=== PATIENT | female | born 1945 | race Two or more races ===

== ENCOUNTER 2017-07-26 21:48 | Emergency (ER) | payer MEDICARE, BC ==
[2017-07-27] MEDS ORDERED: MORPHINE SULFATE IR 15 MG TABLET PO ONE (00:42)
[2017-07-27] MEDS ORDERED: ACETAMINOPHEN 325 MG TABLET PO ONE (00:42)
--- NOTE | 2017-07-27 00:43 | ER Document Report ---
ED General - General Chief Complaint: Fall Injury Stated Complaint: FALL Time Seen by Provider: 07/27/17 00:27 Notes: Patient is a 71-year-old female who presents after missing a step and falling down approximately 2 stairs. She states that she landed on her left knee and right shoulder and also struck the right side of her face. She does report that she lost consciousness. She is uncertain of the duration of loss of consciousness. She arrives complaining of a dull, constant throbbing pain to the right shoulder, left knee, and the back of her neck. Movement of any of the affected areas worsens the pain. She has not yet trialed anything to improve her pain. She denies a syncopal episode as the etiology of her fall today. She has not seen her primary doctor regarding today's concerns. She denies any prior injuries to the affected areas. Past Medical History - General Information source: Patient - Social History Smoking Status: Never Smoker Frequency of alcohol use: None Drug Abuse: None Lives with: Family Family History: Reviewed & Not Pertinent Review of Systems - Review of Systems Notes: Constitutional: Negative for fever. Eyes: Negative for visual changes. ENT: Negative for facial injury Cardiovascular: Negative for chest injury. Respiratory: Negative for shortness of breath. Gastrointestinal: Negative for abdominal injury. Genitourinary: Negative for genital injury Musculoskeletal: Positive for right shoulder and left knee injury Skin: Positive for laceration/abrasions. Neurological: Positive for head injury. Physical Exam - Vital signs Vitals: Temp Pulse Resp BP Pulse Ox 98.9 F 115 H 18 140/65 H 95 07/26/17 22:14 07/26/17 22:14 07/26/17 22:14 07/26/17 22:14 07/26/17 22:14 Interpretation: Tachycardic - Resolved at time of my assessment Notes: PHYSICAL EXAMINATION: GENERAL: Well-appearing, no acute distress. HEAD: Atraumatic, normocephalic. EYES: Pupils equal round and reactive to light, extraocular movements intact, sclera anicteric, conjunctiva are normal. ENT: nares patent, no oral pharyngeal trauma. No hemotympanum, no Y[place]oah's sign , no raccoon eyes. NECK: No midline cervical spine tenderness. Patient able to move their head to 45 bilaterally without any discomfort. LUNGS: Breath sounds clear to auscultation bilaterally and equal. No wheezes rales or rhonchi. HEART: Regular rate and rhythm without murmurs. CHEST WALL: No ecchymosis over the chest wall. ABDOMEN: Soft, nontender, normoactive bowel sounds. No guarding, no rebound. No abdominal bruising. EXTREMITIES: Limited range of motion of the right shoulder secondary to pain. There is no deformity to any extremity. There is mild bruising over the inferior patellar surface on the left knee. BACK: No midline spinal tenderness, step-offs, or deformities. NEUROLOGICAL: Face symmetric. Tongue protrudes midline. Extraocular motions intact. Pupils are 2 mm and equally reactive. Normal speech. 5 out of 5 strength in both the distal and proximal upper and lower extremities bilaterally. Sensation is grossly intact throughout. Finger to nose testing normal. Pronator drift normal. PSYCH: Normal mood, normal affect. SKIN: Warm, Dry, normal turgor, superficial abrasion to the lateral corner of the right orbital socket Course - Re-evaluation Re-evalutation: 07/27/17 00:42 Presentation of a well appearing elderly patient in no acute distress, vitals within normal limits after a mechanical fall. Patient denies a syncopal episode as the cause for today's fall. No focal neurologic deficits on exam, no evidence of basilar skull fracture on exam without evidence of hemotympanum, raccoon eyes, or periauricular hematoma. No papilledema. Patient is not on anticoagulation. GCS is 15. No loss of consciousness. No episodes of vomiting. However, based on patient's age a CT of the head has been obtained which is negative for any acute intracranial bleed. Likewise, patient was unable to be clinically cleared due to age by [place] cervical spine criteria. A CT of the cervical spine was also obtained and likewise is negative for any acute fracture. No indication for further imaging of the cervical spine. Patient has pain to the right shoulder has a limited range of motion so will obtain right shoulder x-rays. She also has pain to the left knee along with an ecchymosis over the inferior patellar region but no limited range of motion the area. Will also obtain x-ray of this area. Chest and abdominal exam are benign without any focal tenderness, shortness of breath, or bruising over the chest or abdominal wall. Patient has no flank tenderness. 12/21/17 02:56 X-rays are unremarkable without any acute fracture. At this time will discharge with return precautions and follow-up recommendations. Verbal discharge instructions given a the bedside and opportunity for questions given. Medication warnings reviewed. Patient is in agreement with this plan and has verbalized understanding of return precautions and the need for primary care follow-up in the next 24-72 hours. - Vital Signs Vital signs: Temp Pulse Resp BP Pulse Ox 98.9 F 115 H 18 140/65 H 95 07/26/17 22:14 07/26/17 22:14 07/26/17 22:14 07/26/17 22:14 07/26/17 22:14 - Diagnostic Test Radiology reviewed: Image reviewed, Reports reviewed Radiology results interpreted by me: 07/27/17 02:58 Right shoulder x-ray: No acute fracture or dislocation CT head: No acute intracranial bleed Discharge - Discharge Clinical Impression: Fall Qualifiers: Encounter type: initial encounter Qualified Code(s): W19.XXXA - Unspecified fall, initial encounter Head injury Qualifiers: Encounter type: initial encounter Qualified Code(s): S09.90XA - Unspecified injury of head, initial encounter Right shoulder injury Qualifiers: Encounter type: initial encounter Qualified Code(s): S49.91XA - Unspecified injury of right shoulder and upper arm, initial encounter Left knee injury Qualifiers: Encounter type: initial encounter Qualified Code(s): S89.92XA - Unspecified injury of left lower leg, initial encounter Condition: Good Disposition: HOME, SELF-CARE Additional Instructions: You have been seen in the Emergency Department (ED) today following a fall cident. Your workup today did not reveal any injuries that require you to stay in the hospital. You can expect, though, to be stiff and sore for the next several days. You may take Tylenol 1000 mg every 6 hours as needed for pain. You can apply a hot pack or electric heating pad to the sore areas. You can also use topical "Aspercreme with lidocaine" to sore areas as needed. Please follow up with your primary care doctor as soon as possible regarding today's ED visit and your recent accident. Call your doctor or return to the ED if you develop a sudden or severe headache , confusion, slurred speech, facial droop, weakness or numbness in any arm or leg, extreme fatigue, vomiting more than two times, severe abdominal pain, or other symptoms that concern you.
--- NOTE | 2017-07-27 01:55 | RADIOLOGY REPORT (SQ) ---
EXAM DESCRIPTION: CT HEAD WITHOUT CLINICAL HISTORY: 71 years Female, fall COMPARISON: None. TECHNIQUE: No contrast. This exam was performed according to our departmental dose-optimization program, which includes automated exposure control, adjustment of the mA and/or kV according to patient size and/or use of iterative reconstruction technique. FINDINGS: Brain parenchyma appears intact. Minimal cerebral volume loss. No hemorrhage or infarct. No mass, mass effect, or midline shift. Left maxillary molar impaction. Extra-axial structures are otherwise grossly intact. IMPRESSION: No acute findings.
--- NOTE | 2017-07-27 01:56 | RADIOLOGY REPORT (SQ) ---
EXAM DESCRIPTION: CT CERVICAL SPINE WITHOUT CLINICAL HISTORY: 71 years Female, fall COMPARISON: None. TECHNIQUE: No contrast. Coronal and sagittal reformat. This exam was performed according to our departmental dose-optimization program, which includes automated exposure control, adjustment of the mA and/or kV according to patient size and/or use of iterative reconstruction technique. FINDINGS: Moderate disc bulge between the C3 and C7 levels, moderate bony demineralization, moderate atlantoaxial osteoarthritis, normal alignment, and mild straightening. Atherosclerosis. IMPRESSION: No acute findings.
--- NOTE | 2017-07-27 02:17 | RADIOLOGY REPORT (SQ) ---
EXAM DESCRIPTION: KNEE LEFT 2 VIEWS CLINICAL HISTORY: 71 years, Female, fall COMPARISON: None. NUMBER OF VIEWS:2 LIMITATIONS: None. FINDINGS: Moderate tricompartmental osteoarthritis, minimal lateral subluxation, and moderate atherosclerosis. No significant effusion. IMPRESSION: No acute findings. 2011 [employer]- All Rights Reserved
--- NOTE | 2017-07-27 02:19 | RADIOLOGY REPORT (SQ) ---
EXAM DESCRIPTION: SHOULDER RIGHT 2 OR MORE VIEWS CLINICAL HISTORY: 71 years, Female, fall COMPARISON: None. LIMITATIONS: None. FINDINGS: Mild/moderate osteoarthritis of the glenohumeral, acromiohumeral, and acromioclavicular joints. Moderate calcific tendinitis of the rotator cuff. No evidence of significant fracture or dislocation. IMPRESSION: No acute findings. 2010 [employer]- All Rights Reserved
[2017-07-27 03:18] VITALS: BP 107/84
== END 2017-07-27 03:15 | disposition home or self-care (01) ==
LOC: ER 21:48
DX: S06.9X9A Unspecified intracranial injury with loss of consciousness of unspecified duration, initial encounter (principal); S80.02XA Contusion of left knee, initial encounter; S49.91XA Unspecified injury of right shoulder and upper arm, initial encounter; M25.511 Pain in right shoulder; M25.562 Pain in left knee; M54.2 Cervicalgia; W10.9XXA Fall (on) (from) unspecified stairs and steps, initial encounter
CPT/HCPCS: 99283; 73560; 73030; 70450; 72125; A9270 ×2